=== PATIENT | female | born 1985 | race Hispanic/Latino ===

== ENCOUNTER → 2019-09-07 | Day surgery (SDC) | payer SELFPAY, OTHER ==
[~2019-09-07] MED LIST: ACETAMINOPHEN 1000 MG/100 ML IV ONE; APPLE CIDER VI300 MG PO; BACITRACIN 50,000 UNIT VIAL ONE; CEFAZOLIN SOD 1 GM VIAL ONE; CEFAZOLIN SOD 1 GM/NS 50ML 100 ML IV ONE; DEXAMETHASONE SOD PHOS INJ 4 MG/ML VIAL ONE; EPINEPHRINE HCL 1:1000 1ML 1 MG/ML AMP ONE; FENTANYL CITRATE/PF 100MCG/2 ML INJ ONE; GENTAMICIN SULFATE 40 MG/ML 2 ML VIAL ONE; HYDROCODONE/APAP 10MG-325MG TAB ONE; HYDROMORPHONE 2MG/ML 2 MG/ML ML ONE; LIDOCAINE HCL 1% 30ML-PF VIAL ONE; LIDOCAINE HCL 1% LOCAL INJ 20 ML VIAL ONE; LIDOCAINE HCL 2% LOCAL INJ 5 ML SDV VIAL INJ ONE; METOCLOPRAMIDE HCL 10 MG/2ML VIAL ONE; MIDAZOLAM HCL 2 MG/2 ML VIAL ONE; ONDANSETRON HCL INJ 2MG/ML 2ML 2 MG/ML VIAL ONE; PROPOFOL IV EMULSION 10 MG/ML 20 ML VIAL ONE; ROCURONIUM BROMIDE 10 MG/ML 5ML VIAL IV ONE; SEVOFLURANE INHAL SOLN 250 ML PEN BTL ONE
[2019-09-07 18:15] VITALS: BP 128/75
--- NOTE | 2019-09-11 00:35 | Operative Report ---
DATE OF PROCEDURE: 09/07/2019 SURGEON: Martinez Cooper MD PREOPERATIVE DIAGNOSES: Cosmetic deformity of breast and trunk. POSTOPERATIVE DIAGNOSES: Cosmetic deformity of breast and trunk. PROCEDURES PERFORMED: 1. Bilateral augmentation mastopexy. 2. Abdominoplasty with liposuction of abdomen, flanks, and back. ANESTHESIA: General. ESTIMATED BLOOD LOSS: 150 mL. COMPLICATIONS: None. DRAINS: A 19-British DANNY in the abdomen. IMPLANTS: Sientra smooth round style 107 650 mL implants, high profile; right serial #[id number], left serial #[id number]. CONDITION IN RECOVERY: Stable, extubated. POSTOPERATIVE PLAN: Discharge to home. PROCEDURE IN DETAIL: The patient was identified and marked in the preoperative holding area. Preoperative antibiotics were given. SCDs were placed. She was initially placed into prone position with appropriate padding for her face and bony prominences. The back was prepped and draped in sterile fashion. I made small axis incisions in the mid and lower back. I then infiltrated these areas evenly with tumescent solution. Solution consisted of 50 mL of 1% lidocaine plain with 1 amp of epi for 1 L of crystalloid. After allowing 10 minutes for the tumescent to take affect, I proceeded with liposuction to the flanks and back. I began with a 4 mm cannula for the deeper and intermediate subcutaneous tissues and then transitioned to a 3 mm cannula as I got closer to the skin. I continued until there was even contour impinged thickness and the quality of the aspirate changed from fatty to slightly bloody. At this point, I stopped the liposuction portion and I closed the incisions with 4-0 Monocryl interrupted sutures. We then turned the patient into supine position and re-prepped and draped the chest and abdomen in sterile fashion. Next, I began with the breast and made a 4 cm incision in the inframammary crease. I performed a dual-plane III dissection, elevating the entire inferior portion of the breast up to level of the nipple areolar complex of the pectoralis major fascia. IMF incision was also made slightly below her existing inframammary crease to recruit additional lower pole skin. Once the breast had been elevated, I then entered the lateral pectoral fascia and developed the plane between the pectoralis major and minor under direct vision. I also used the Bovie cautery carefully to disinsert the costal origin of the pectoralis major, but I left all sternal fibers intact. I then continued my dissection cranially to the level of the second interspace. I then checked for hemostasis and irrigated out with the antibiotic solution. At this point, the implant package was opened and the implant was also soaked in the antibiotic solution. I cleaned the skin with Betadine. I changed my gloves. I was the only person who handled the implant. The implant was inserted into the pocket without difficulty. I then closed with 2-0 Vicryl, 3-0 Vicryl, and 4-0 Monocryl. The same technique was performed on the contralateral breast. At this point, I sat the patient up and tailored tacked the breast. I adjusted my vertical mastopexy markings as needed. I then used a 42 mm cookie cutter around the nipple areolar complex and then made my additional outside sharp incisions. I then used the cautery. I deepithelialized my superior pedicle and used the cautery to resect the inferior wedge dermoglandular tissue. I checked for hemostasis and I began to close the parenchymal pillars with 2-0 Vicryl sutures. I inserted the nipple areolar complex with 3-0 Vicryl sutures and closed the remainder of the skin incisions with 3-0 Vicryl and 4-0 Monocryl. The nipple areolar complex has had excellent color and cap refill throughout the case. Next, I began with the abdominoplasty portion of the procedure. I started by infiltrating additional tumescent solution into the epigastrium and flanks. I allowed time for this to take affect and then I performed additional liposuction as described earlier to these areas. Then, I made my lower abdominal incision. Centrally, I dissected straight down to the rectus fascia. Laterally, I went just below Giovana fascia leaving small amount of subcutaneous tissue on the external oblique. I made a sharp circular incision around the umbilicus and this from my skin flap. I then continued my dissection up centrally to the level of the xiphoid. I assessed for hemostasis and placed a 19-British drain in the face of the wound. I injected the fascia with 0.25% Marcaine with epi. I then performed a double-layered plication with 0 Prolene suture. Next, I performed a progressive tension along the midline and laterally with 2-0 Vicryl sutures, securing the skin flap back down to the fascia. I then proceeded to close at the level of the Giovana fascia with 2-0 Vicryl sutures. The skin edges were in line with Insorb stapler, and then the final skin closure was accomplished with 3-0 Monocryl running subcuticular suture. All counts were correct. The patient tolerated the procedure well. MD PASTORA Anne/CUAUHTEMOCL /[id number]
== END | disposition home or self-care (01) ==
LOC: OR 08:10
PROVIDERS: ATTEND Specialist
DX: E65 Localized adiposity (principal); L98.7 Excessive and redundant skin and subcutaneous tissue; N64.82 Hypoplasia of breast; N64.81 Ptosis of breast; Z01.812 Encounter for preprocedural laboratory examination; Z11.59 Encounter for screening for other viral diseases
CPT/HCPCS: 15877; 17999; 19316; 19325; 81025; 87635; J0131; J0171; J0690 ×2; J1100; J1170; J1580; J2001 ×3; J2405; J2704; J2765; J2250; J3010